=== PATIENT | male | born 1980 | race American Indian/Alaskan Native ===

== ENCOUNTER 2021-09-24 10:39 | Emergency (ER) | payer OTHER ==
[2021-09-24 12:49] VITALS: BP 132/54
== END 2021-09-24 18:23 | disposition left against medical advice (07) ==
LOC: ED 10:39
DX: M54.2 Cervicalgia (principal); Z53.21 Procedure and treatment not carried out due to patient leaving prior to being seen by health care provider

== ENCOUNTER 2021-09-25 12:44 | Emergency (ER) | payer OTHER ==
[2021-09-25 14:23] VITALS: BP 132/86
[2021-09-25] MEDS ORDERED: KETOROLAC 30 MG/1 ML INJ IM ONE (14:47)
[2021-09-25] MEDS ORDERED: dexAMETHasone 20 MG/5 ML VIAL IM ONE (14:48)
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
== END 2021-09-25 15:25 | disposition home or self-care (01) ==
LOC: ED 12:44
DX: M54.2 Cervicalgia (principal); E11.9 Type 2 diabetes mellitus without complications; I10 Essential (primary) hypertension; F17.200 Nicotine dependence, unspecified, uncomplicated; F10.20 Alcohol dependence, uncomplicated
CPT/HCPCS: 96372; 99282; J1100; J1885